=== PATIENT | male | born 1975 | race African-American/Black ===

== ENCOUNTER 2017-06-06 12:01 | Emergency (ER) | payer OTHER, MEDICAID ==
[2017-06-06] MEDS ORDERED: OXYCODONE HCL IR 5 MG TABLET PO ONE (12:19)
--- NOTE | 2017-06-06 12:20 | ER Document Report ---
ED Medical Screen (RME) - General Chief Complaint: Finger Injury Stated Complaint: RIGHT MIDDLE FINGER LACERATION Time Seen by Provider: 06/06/17 12:14 Notes: 41-year-old male here with a cut to his right middle finger that he sustained just prior to arrival. He was installing something on a vehicle when the fan blade cut his right middle finger. He has not taken anything for the pain. His last tetanus was 2 years ago. EXAM Right middle finger laceration with no visible bone TRAVEL OUTSIDE OF THE [place] IN LAST 30 DAYS: No - Related Data Allergies/Adverse Reactions: No Known Allergies Allergy (Verified 06/06/17 12:08) Home Medications: Current Home Medications No Home Medications 06/06/17 [History] Past Medical History - Social History Frequency of alcohol use: None Drug Abuse: Marijuana Renal/ Medical History: Denies: Hx Peritoneal Dialysis Physical Exam - Vital signs Vitals: Temp Pulse Resp BP Pulse Ox 97.9 F 75 20 141/103 H 98 06/06/17 12:02 06/06/17 12:02 06/06/17 12:02 06/06/17 12:02 06/06/17 12:02 Course - Vital Signs Vital signs: Temp Pulse Resp BP Pulse Ox 97.9 F 75 20 141/103 H 98 06/06/17 12:02 06/06/17 12:02 06/06/17 12:02 06/06/17 12:02 06/06/17 12:02
--- NOTE | 2017-06-06 13:02 | RADIOLOGY REPORT (SQ) ---
EXAM DESCRIPTION: FINGER RIGHT COMPLETED DATE/TIME: 06/06/2017 12:47 pm REASON FOR STUDY: R middle finger vs fan blade; eval for fracture COMPARISON: None. NUMBER OF VIEWS: Three views. TECHNIQUE: AP, lateral, and oblique images acquired of the right third finger. LIMITATIONS: None. FINDINGS: MINERALIZATION: Normal. BONES: Minimally displaced fracture of the tuft. Remainder of the bony structures are intact. SOFT TISSUES: No soft tissue swelling. No foreign body. OTHER: No other significant finding. IMPRESSION: MINIMALLY DISPLACED FRACTURE OF THE TUFT OF THE RIGHT 3RD FINGER. COMMENT: SITE OF TRAUMA/COMPLAINT MARKED/STAMP COMPLETED: YES. TECHNICAL DOCUMENTATION: JOB ID: [id number] [employer]- All Rights Reserved
--- NOTE | 2017-06-06 13:30 | ER Document Report ---
HPI - HPI Pain Level: 5 Notes: Patient is a 41-year-old male who presents to the ED complaining of a laceration to the right distal third digit anteriorly status post injury while at work prior to arrival. Patient states that he was reaching his hand up underneath a car to tighten a ball when a car turned on the fan came on with it catching his finger. Patient states that he is still able to move his finger without any difficulties. He has no numbness or tingling associated. Patient states his last tetanus was 2 years ago. He has no other concerns or complaints. Denies any drug allergies. Denies any headache, fever, chest pain , palpitations, syncope, cough, shortness of breath, wheeze, dyspnea, abdominal pain, nausea/vomiting/diarrhea, muscle paralysis/weakness, or rash. - ROS Notes: REVIEW OF SYSTEMS: CONSTITUTIONAL : Denies fever, chills, or sweats. Denies recent illness. EENT: Denies eye, ear, throat, or mouth pain or symptoms. Denies nasal or sinus congestion or discharge. Denies throat, tongue, or mouth swelling or difficulty swallowing. CARDIOVASCULAR: Denies chest pain. Denies palpitations or racing or irregular heart beat. Denies ankle edema. RESPIRATORY: Denies cough, cold, or chest congestion. Denies shortness of breath, difficulty breathing, or wheezing. GASTROINTESTINAL: Denies abdominal pain or distention. Denies nausea, vomiting , or diarrhea. Denies blood in vomitus, stools, or per rectum. Denies black, tarry stools. Denies constipation. GENITOURINARY: Denies difficulty urinating, painful urination, burning, frequency, blood in urine, or discharge. MUSCULOSKELETAL: see hpi SKIN: see hpi NEUROLOGICAL: Denies passing out or loss of consciousness. Denies dizziness or lightheadedness. Denies headache. Denies weakness or paralysis or loss of use of either side. Denies problems with gait or speech. Denies sensory loss, numbness, or tingling. Denies seizures. ALL OTHER SYSTEMS REVIEWED AND NEGATIVE. Dictation was performed using [employer] voice recognition software - DERM Skin Color: Normal Past Medical History - Social History Smoking Status: Current Every Day Smoker Frequency of alcohol use: None Drug Abuse: Marijuana Family History: Reviewed & Not Pertinent Patient has suicidal ideation: No Patient has homicidal ideation: No Renal/ Medical History: Denies: Hx Peritoneal Dialysis Vertical Provider Document - CONSTITUTIONAL Agree With Documented VS: Yes Notes: PHYSICAL EXAMINATION: GENERAL: Well-appearing, well-nourished and in no acute distress. A&Ox4 LUNGS: Breath sounds clear to auscultation bilaterally and equal. No wheezes rales or rhonchi. HEART: Regular rate and rhythm without murmurs, rubs, gallops. Musculoskeletal: Rt 3rd digit: FROM to passive/active. Strength 5+/5. + tenderness to palp over the lac and to the distal phalange. + mild swelling distally. N/V intact. Extremities: No cyanosis, clubbing, or edema b/l. Peripheral pulses 2+. Capillary refill less than 3 seconds. NEUROLOGICAL: Cranial nerves grossly intact. Normal speech, normal gait. Normal sensory, motor exams PSYCH: Normal mood, normal affect. SKIN: There is an avulsion skin laceration to the distal anterior 3rd digit over the DIP area approx 0.6cm of missing skin with irregular laceration 0.2cm connected to the site. There is also a very superficial skin avulsion to the posterior 4th distal digit. - INFECTION CONTROL TRAVEL OUTSIDE OF THE [place] IN LAST 30 DAYS: No - RESPIRATORY O2 Sat by Pulse Oximetry: 98 Course - Re-evaluation Re-evalutation: 06/06/17 14:05 Patient is an afebrile, well-hydrated, 41-year-old male who presents to the ED with a tuft fracture of the third distal digit on the right hand as well as an avulsion laceration to the third and fourth digits as noted on exam. Vitals are stable. PE is otherwise unremarkable for any neurovascular compromise, obvious tendon/ligament rupture, sepsis, cellulitis. See x-ray result. Wound was thoroughly cleansed and irrigated. There is no obvious foreign body appreciated. Reviewed with patient that because of the missing skin and the gap that is present, I will not be able to approximate the wound edges appropriately, which means that we will allow the wound to heal by secondary intent. The wound was dressed with Xeroform and one Steri-Strip was placed. The finger was then splinted. Wound instructions reviewed. I will send him home with a prescription for Keflex to take as directed. Conservative measures otherwise for symptoms. Recheck with your PCM in 3-5 days. Call orthopedics to schedule an appointment for further evaluation and management. Return to the ED with any worsening/concerning symptoms otherwise as reviewed in discharge. Patient is in agreement. - Vital Signs Vital signs: Temp Pulse Resp BP Pulse Ox 97.9 F 75 20 141/103 H 98 06/06/17 12:02 06/06/17 12:02 06/06/17 12:02 06/06/17 12:02 06/06/17 12:02 Discharge - Discharge Clinical Impression: Closed fracture of tuft of distal phalanx of finger Avulsion of skin of finger without complication Qualifiers: Encounter type: initial encounter Qualified Code(s): S61.209A - Unspecified open wound of unspecified finger without damage to nail, initial encounter Condition: Stable Disposition: HOME, SELF-CARE Instructions: Cephalexin ([facility]), Tuft Fracture of the Finger ([facility]) Additional Instructions: Do not shower or bathe for 24 hours. After 24 hours you may shower but no submersion of the wound under water. Keep the original dressing on the wound for 24 hours unless the drainage soaks through. Change the dressing daily thereafter with xeroform. You may switch to bacitracin after 4-5 days (use for 2 days approx) then you may leave the wound open to the air once there is no more discharge. Recheck with your PCM in 3-5 days. Monitor for any signs of worsening pain or redness, purulent drainage, streaks, and/or fever. Call Orthopedics for further evaluation and management. Return to the ED if noticing any of the above symptoms or as needed. Take medications as directed. Prescriptions: Cephalexin Monohydrate [Keflex 500 mg Capsule] 500 mg PO TID #30 capsule Forms: Elevated Blood Pressure, Smoking Cessation Education, Return to Work Referrals: [facility] [Provider Group] - Follow up as needed
[2017-06-06] MEDS ORDERED: HYDROCODONE/ACETAMINOPHEN 5-325 MG (6 TAB/ER DISP) PO PRN (14:08)
[2017-06-06 14:17] VITALS: BP 140/95
== END 2017-06-06 14:17 | disposition home or self-care (01) ==
LOC: ER 12:01
DX: S62.632A Displaced fracture of distal phalanx of right middle finger, initial encounter for closed fracture (principal); S61.212A Laceration without foreign body of right middle finger without damage to nail, initial encounter; S61.218A Laceration without foreign body of other finger without damage to nail, initial encounter; W26.8XXA Contact with other sharp object(s), not elsewhere classified, initial encounter; Y93.89 Activity, other specified; Y99.0 Civilian activity done for income or pay; F17.200 Nicotine dependence, unspecified, uncomplicated
CPT/HCPCS: 99283